=== PATIENT | male | born 1940 | race Caucasian/White ===

== ENCOUNTER → 2016-11-16 | Day surgery (SDC) | payer MEDICARE, BC ==
[~2016-11-16] MED LIST: ACEBUTOLOL HCL400 MG PO; AZILECT; AZILECT1 MG PO; CARBIDOPA-LEVO1 EAC2 PO; CARBIDOPA-LEVO1 EACH PO; CINNAMON BARK1 GM MC; CO Q-10200 MG PO; CRESTOR PO; FISH OIL 1,2001 CAP PO; FLOMAX0.4 M1 PO; FLOMAX0.4 MG PO; GABAPENTIN300 M2 PO; GLIPIZIDE10 MG PO; GLUCOPHAGE850 MG PO; GLUCOTROL XL PO; LEVAQUIN PO; LINZESS145 MCG PO; LISINOPRIL PO; LISINOPRIL20 MG PO; LOW DOSE ASPIRI81 M1 PO; METFORMIN HCL500 M1 PO; METFORMIN PO; MIRALAX17 G2 PO; OMEGA 3-6-9 11200 M1 PO; PROTONIX PO; REQUIP1 MG PO; SECTRAL PO; SINEMET-25/1001 TA1 PO; STOOL SOFTENER100 M1 PO; TRAZODONE PO; VITAMIN C500 M1 PO; VYTORIN 10/40 T1 TAB PO
--- NOTE | ~2016-11-16 | CT2 ---
[facility] A Service [facility] RADIOLOGY TEXT RESULTS PATIENT: KERWIN VALENTIN LOCATION: [facility] : 44 UNIT #: [id number] AGE: [address]: Pastor Main MD SEX: M ORDER DR: [id number] [id number] [facility]. [place], [place] [address] [id number] O MR#: [id number] Acc #: [id number] NAME: KERWIN VALENTIN. : 1940 SEX: M STUDY DATE/TIME: 11/16/2016 8:30 UNIT: [facility] ROOM: STUDY DESCRIPTION: CT Abd and Pelv W Cont Attending Physician: Pastor Main M.D. Ordering Physician: Pastor Main M.D. Primary Care Physician: Craig Driver M.D. MEDICAL IMAGING REPORT This report is preliminary unless electronic signature is present EXAM CT abdomen and pelvis with contrast DATE 11/16/2016 HISTORY 76-year-old male with 30 pound weight loss over 4 months, night sweats for 4 months, constipation for 3 years. History of polyps and anorexia. Parkinson disease. Diabetes. Prostate cancer diagnosed 12 years ago with radiation therapy. Previous hernia repair. COMPARISON CT abdomen and pelvis with contrast 08/22/2005. PROCEDURE 5 mm axial images from the lung bases to the lesser trochanters after intravenous and enteric contrast administration. Sagittal and coronal reformatted images were obtained. This CT exam was performed with one or more of the following radiation dose reduction techniques: automatic control, adjustment of mA and/or kV according to patient size, and iterative reconstruction. FINDINGS ABDOMEN FINDINGS: Mild nodular pleural thickening in the posterior lateral left lower lobe. The costophrenic angle is similar to the 2006 examination. No acute basilar or airspace disease is identified. Mild coronary artery calcifications are present. The liver, gallbladder, spleen, pancreas, are normal. Low-density bilateral renal lesions are present, some of which are technically too small to characterize but are statistically favored to represent cysts. [facility] A Service [facility] RADIOLOGY TEXT RESULTS PATIENT: KERWIN VALENTIN LOCATION: [facility] #: [id number] : 44 UNIT #: [id number] AGE: [address]: Pastor Main MD SEX: M ORDER DR: There is focal cortical scarring in the left lower renal pole which is unchanged from 2006. There is focal calcification in the right adrenal gland which may represent sequelae of old granulomatous disease or previous infectious or ischemic insult, but this is unchanged from prior. Left adrenal gland is normal. No pathologic adenopathy. No ascites. Normal appendix. Bowel appears grossly nonthickened, nondilated, noninflamed. PELVIS FINDINGS: Urinary bladder, prostate and rectum are normal. No pelvic adenopathy or free fluid is identified. Presumed hemangioma within the L1 vertebral body unchanged from prior examination. Multilevel degenerative disc and endplate changes are present in the lumbar spine, greatest at L3-4 through L5-S1. Suspected severe canal stenosis at L2-3, L4-5, moderate canal stenosis at L3-4 and L5-S1. Multilevel neural foraminal stenosis, thought to be greatest at L4-5 and L5-S1. IMPRESSION 1. No evidence of a primary malignancy or metastatic disease in the abdomen or pelvis. No acute inflammatory changes. No CT explanation for the patient's recent rapid weight loss. 2. Advanced degenerative changes of the spine, greatest in the lower lumbar regions with multilevel advanced canal stenosis and neural foraminal stenosis. No acute osseous abnormalities. 3. Low-density bilateral renal lesions statistically favored to represent cysts, with focal cortical scarring in the left lower renal pole. 4. Chronic-appearing subpleural scarring in the left lower lobe. No acute basilar airspace disease. Dictated by... Ruthie Chung M.D. THIS IS AN ELECTRONICALLY VERIFIED REPORT Ruthie Chung M.D. at 11/17/2016 12:08 PM [email or web address] TD: 11/16/2016 12:38 JOB #: [id number] MEDICAL IMAGING REPORT Page 1 of 1 COPY
--- NOTE | ~2016-11-16 | OR ---
Unit #: [id number] #: [id number] Patient: KERWIN VALENTIN [id number] [address] [address] [id number] O MR#: [id number] NAME: KERWIN VALENTIN. ROOM: Date of Procedure: 11/16/2016 Admission Date: 11/16/2016 Surgeon: Pastor Main M.D. : 1940 Attending Physician: Pastor Main M.D. Primary Care Physician: Craig Driver M.D. OPERATIVE REPORT PREOPERATIVE DIAGNOSES The patient has presented with history of anorexia and weight loss and dyspepsia. In addition, he needs a surveillance colonoscopy having had personal history of colon polyps. PROCEDURES PERFORMED Upper gastrointestinal endoscopy and biopsy as well as colonoscopy with polypectomy. POSTOPERATIVE DIAGNOSES For upper endoscopy: 1. There was distal grade 2 erosive esophagitis. 2. There was moderate prepyloric antral erosive gastritis. 3. Focal patchy erosive duodenitis involving the duodenal bulb. 4. Small hiatus hernia. 5. Rest of the examination up to third part of duodenum was normal. A biopsy was obtained from the antrum for CLOtest. For colonoscopy: 1. A single sessile polyp in the hepatic flexure removed using snare polypectomy. 2. Moderate pandiverticulosis. 3. Rest of the examination up to cecum and terminal ileum was normal. The quality of the prep was excellent. RECOMMENDATIONS Follow up the results of biopsies taken today as well as polyp histology. The patient will be reviewed in the office in 6 to 8 weeks' time. SEDATION USED MAC. DESCRIPTION OF PROCEDURE Following detailed explanation of potential risks and complications of an upper endoscopy and a colonoscopy, namely perforation, bleeding, and complications related to sedation, the patient was brought to GI lab and laid in the left lateral decubitus position. Lubricated tip of the Olympus video upper endoscope was passed through the bite block into the proximal esophagus under direct vision. The entire esophageal mucosa was examined and the patient was noted to have distal erosive esophagitis with moderate severity. The scope was then advanced into the gastric cavity and the latter was insufflated. Mucosa of the fundus, body, and antrum was examined and moderate prepyloric antral erythema erosions were noted Unit #: [id number] #: [id number] Patient: KERWIN VALENTIN indicating antral gastritis. Pylorus was intubated with visualization of the duodenal bulb. The latter was noted to have focal patchy erosive duodenitis. Second and third part of the duodenum were normal. Upon withdrawal and retroflexion, incisura, cardia, and greater curve examined and a biopsy obtained from the antrum for CLOtest. The scope was then withdrawn in the distal esophagus. The entire esophageal mucosa was examined all the way up to pharynx. No additional findings noted. The examination was then turned by 180 degrees and the patient positioned for a colonoscopy. A digital rectal examination was performed, which was normal. Lubricated tip of the Olympus video colonoscope was inserted through the anus and advanced under direct vision. The scope was advanced and passed up to sigmoid into descending colon. Multiple medium-sized diverticula were noted in this area. The scope tip was then navigated all the way up to cecum with visualization of the ileocecal valve and the appendiceal orifice. Preparation was excellent with good visualization and photodocumentation was obtained. Last several inches of the terminal ileum also visualized after intubation of the ileocecal valve and appeared normal. Successive segments of the colonic mucosa were examined upon withdrawal. A single sessile polyp was noted in the hepatic flexure. This was about a centimeter in size. It was removed using snare cautery polypectomy. Snare polypectomy polyp was retrieved and sent for histology. No additional polyps were noted. The patient did not have any angiodysplasias. Other than the moderate pandiverticulosis, no other additional abnormalities were noted. No hemorrhoids were noted at the anal verge. The scope was then withdrawn. The patient returned to the recovery area. He tolerated the procedure without any postprocedure complications. Dictated by... Radha Sweet TD: 11/17/2016 05:50 JOB #: [id number] OPERATIVE REPORT Page 1 of 1 X Pastor Main MD X PROCEDURE OPERATIVE NOTE
[2016-11-16 09:10] LABS: POC - CREATININE 0.74 mg/dL (0.64-1.27); POC - GFR >60.0 mL/min (>60)
== END | disposition home or self-care (01) ==
LOC: COPS 06:54
PROVIDERS: Internal Medicine Gastroenterology
DX: Z12.11 Encounter for screening for malignant neoplasm of colon (principal); D12.3 Benign neoplasm of transverse colon; K29.80 Duodenitis without bleeding; K20.8 Other esophagitis; K29.00 Acute gastritis without bleeding; K44.9 Diaphragmatic hernia without obstruction or gangrene; K57.30 Diverticulosis of large intestine without perforation or abscess without bleeding; M19.90 Unspecified osteoarthritis, unspecified site; E11.9 Type 2 diabetes mellitus without complications; G20 Parkinson's disease; F17.210 Nicotine dependence, cigarettes, uncomplicated; Z86.010 Personal history of colon polyps; Z85.46 Personal history of malignant neoplasm of prostate; Z88.1 Allergy status to other antibiotic agents; Z98.890 Other specified postprocedural states; Z79.82 Long term (current) use of aspirin; Z79.84 Long term (current) use of oral hypoglycemic drugs; Z79.899 Other long term (current) drug therapy
CPT/HCPCS: 74177; 82565; 82947; 87077; 88305; Q9967